=== PATIENT | male | born 1955 | race Caucasian/White ===

== ENCOUNTER 2018-02-27 20:17 | Emergency (ER) | payer BC ==
[~2018-02-27] VITALS: Ht 172.7 cm; Wt 74.0 kg
[2018-02-27] MEDS ORDERED: SODIUM CHLORIDE 0.9% 1,000 ML IV ONE ×3 (20:37→22:35)
[2018-02-27 21:17] LABS: BASOPHILS % 1.4 % (0.0-2.0); EOSINOPHILS % 3.9 % (0.0-5.0); HEMATOCRIT. 39.6 % (42.0-52.0); HEMOGLOBIN. 13.7 g/dL (14.0-18.0); LYMPHOCYTES % 37.1 % (20.0-50.0); MEAN CORPUSCULAR HEMOGLOBIN 33.4 pg (28.0-32.0); MEAN CORPUSCULAR VOLUME 96.6 fL (80.0-94.0); MEAN PLATELET VOLUME 10.1 fl (7.4-10.4); MONOCYTES % 8.2 % (2.0-8.0); NEUTROPHILS % 49.4 % (40.0-76.0); PLATELET 186 x1000/uL (130-400); RED CELL DISTRIBUTION WIDTH 14.2 % (11.6-14.6)
[2018-02-27 21:22] LABS: CHLORIDE 106 mEq/L (98-107)
[2018-02-27 21:25] LABS: ETHANOL BLOOD 24 mg/dL
[2018-02-27 21:40] LABS: CLARITY URINE CLOUDY (CLEAR); COLOR URINE DARK YELLOW (YELLOW); KETONES URINE TRACE (NEGATIVE); LEUKOCYTE ESTERASE URINE NEGATIVE (NEGATIVE); NITRITE URINE NEGATIVE (NEGATIVE); OCCULT BLOOD URINE NEGATIVE (NEGATIVE); PROTEIN URINE TRACE (NEGATIVE); SPECIFIC GRAVITY URINE 1.025 (1.005-1.030); UROBILINOGEN URINE 0.2 E.U./dL (0.2-1.0)
[2018-02-27 22:01] LABS: *BARBITURATES SCREEN URINE NEGATIVE (NEGATIVE)
[2018-02-27 22:02] LABS: *AMPHETAMINES SCREEN URINE NEGATIVE (NEGATIVE); *BENZODIAZEPINES SCREEN URINE NEGATIVE (NEGATIVE); *COCAINE SCREEN URINE NEGATIVE (NEGATIVE); CANNABINOID URINE SCREEN PRESUMTIVE POSITIVE (NEGATIVE); METHADONE URINE SCREEN NEGATIVE (NEGATIVE); OPIATES URINE SCREEN NEGATIVE (NEGATIVE); PHENCYCLIDINE URINE SCREEN NEGATIVE (NEGATIVE)
[2018-02-27] MEDS ORDERED: IBUPROFEN 400MG TABLET PO NR (22:45)
[2018-02-27 23:50] VITALS: BP 107/60
== END 2018-02-28 00:11 | disposition home or self-care (01) ==
LOC: ER 20:17
DX: R55 Syncope and collapse (principal); E87.6 Hypokalemia; E87.2 Acidosis; E78.00 Pure hypercholesterolemia, unspecified; F12.90 Cannabis use, unspecified, uncomplicated; Z90.49 Acquired absence of other specified parts of digestive tract; Z93.3 Colostomy status
CPT/HCPCS: 36415; 70450; 71045; 74176; 80053; 80305; 81003; 83605; 83690; 83880; 84484; 85025; 85379; 93005; 96360; 96361; 99285; G0482; J7030; Z7610

== ENCOUNTER 2021-08-26 21:12 | Emergency (ER) | payer BC, OTHER ==
[~2021-08-26] VITALS: Ht 167.6 cm; Wt 100.0 kg
[2021-08-26] MEDS ORDERED: KETOROLAC 60MG/2ML VIAL IM ONE (21:45)
[2021-08-26 23:35] LABS: CLARITY URINE CLEAR (CLEAR); COLOR URINE YELLOW (YELLOW); KETONES URINE NEGATIVE (NEGATIVE); LEUKOCYTE ESTERASE URINE NEGATIVE (NEGATIVE); NITRITE URINE NEGATIVE (NEGATIVE); OCCULT BLOOD URINE NEGATIVE (NEGATIVE); PH URINE 5.5 (4.5-8.0); PROTEIN URINE NEGATIVE (NEGATIVE); SPECIFIC GRAVITY URINE 1.029 (1.005-1.030); UROBILINOGEN URINE 0.2 E.U./dL (0.2-1.0)
[2021-08-27] MEDS ORDERED: IBUP-2030 MT (01:50)
[2021-08-27 02:01] VITALS: BP 124/71
== END 2021-08-27 02:13 | disposition home or self-care (01) ==
LOC: ER 21:12
DX: S20.212A Contusion of left front wall of thorax, initial encounter (principal); M54.50 Low back pain, unspecified; E78.00 Pure hypercholesterolemia, unspecified; Z85.9 Personal history of malignant neoplasm, unspecified; W01.0XXA Fall on same level from slipping, tripping and stumbling without subsequent striking against object, initial encounter; Y93.89 Activity, other specified; Y92.017 Garden or yard in single-family (private) house as the place of occurrence of the external cause
CPT/HCPCS: 71101; 76700; 81003; 96372; 99285; J1885

== ENCOUNTER 2023-10-16 20:20 | Emergency (ER) | payer OTHER ==
[~2023-10-16] VITALS: Ht 167.6 cm; Wt 96.0 kg
[~2023-10-16 20:20] MED LIST: IBUP-2030 MT
[2023-10-16 20:38] VITALS: O2SAT 97
[2023-10-16 21:21] VITALS: BP 132/59; PULSE 75; RESP 12; TEMP 98.6
[2023-10-16 21:47] LABS: BASOPHILS % 0.9 % (0.0-2.0); EOSINOPHILS % 2.8 % (0.0-5.0); HEMATOCRIT. 36.7 % (42.0-52.0); HEMOGLOBIN. 12.3 g/dL (14.0-18.0); LYMPHOCYTES % 31.3 % (20.0-50.0); MEAN CORPUSCULAR HGB CONC 33.5 g/dL (31.0-37.0); MEAN CORPUSCULAR VOLUME 95.6 fL (80.0-94.0); MEAN PLATELET VOLUME 10.6 fl (7.4-10.4); MONOCYTES % 7.2 % (2.0-8.0); NEUTROPHILS % 57.8 % (40.0-76.0); PLATELET 162 x1000/uL (130-400); RED BLOOD CELL COUNT 3.84 mill/uL (4.7-6.1); WHITE BLOOD COUNT 6.3 x1000/uL (4.5-11.0)
[2023-10-16 21:56] LABS: INR 1.1; PROTHROMBIN TIME 11.5 sec (9.6-11.0)
[2023-10-16 22:00] LABS: ALANINE AMINOTRANSFERASE 12 IU/L (10-49); ALBUMIN 3.8 g/dL (3.2-4.8); ASPARTATE AMINOTRANSFERASE 22 IU/L (<34); BILIRUBIN TOTAL 0.3 mg/dL (0.1-1.0); CALCIUM 8.7 mg/dL (8.7-10.4); CARBON DIOXIDE 27 mEq/L (21-32); CHLORIDE 108 mEq/L (98-107); CREATININE 0.9 mg/dL (0.6-1.3); GLUCOSE 102 mg/dL (70-105); SODIUM 141 mEq/L (136-145); UREA NITROGEN BLOOD 13 mg/dL (9-23)
[2023-10-17] MEDS ORDERED: POLY17PO3 MT (03:46)
[2023-10-17] MEDS ORDERED: IOHEXOL-300 100 ML BOTTLE ONE (06:24)
== END 2023-10-17 05:28 | disposition left against medical advice (07) ==
LOC: ER 20:20
DX: R10.84 Generalized abdominal pain (principal); E78.00 Pure hypercholesterolemia, unspecified; I10 Essential (primary) hypertension; Z68.34 Body mass index [BMI] 34.0-34.9, adult; Z85.9 Personal history of malignant neoplasm, unspecified
CPT/HCPCS: 80053; 83690; 85025; 85610; 36415; 99285; 74177; Z7610 ×2; Q9967